=== PATIENT | female | born 2000 | race Caucasian/White ===

== ENCOUNTER 2019-05-12 14:38 | Emergency (ER) | payer OTHER ==
[~2019-05-12] VITALS: Ht 154.9 cm; Wt 68.7 kg
[2019-05-12 14:57] VITALS: BP 123/70
--- NOTE | 2019-05-12 15:37 | NUR ---
EMT AT BEDSIDE FOR EKG
--- NOTE | 2019-05-12 15:42 | NUR ---
PAIN WAS UNDER THE RIGHT BREAST, WITHOUT RADIATION. DENIES LEFT SIDED CP
--- NOTE | 2019-05-12 15:42 | NUR ---
18/F C/O CHEST PAIN 30 MINS AGO, LASTING ~15MINS EPISODE. DENIES CHEST PAIN NOW. DENIES N/V AT THE TIME. STATES DIAPHORESIS BUT PT STATES SHE WAS NERVOUS AT THE TIME. NEVER HAD CP BEFORE. PAIN DESCRIBED CHEST TIGHTNESS "LIKE I COULDN'T BREATHE", 11/16. DENIES SYNCOPE. PT WAS WALKING AROUND AT THE MALL DURING ONSET OF CP. +NASAL CONGESTION +COUGH PMH: DENIES --FAMILY HX OF CARDIAC PROBLEMS: SISTER, MOTHER, MATERNAL GRANDFATHER HAS DILATED CARDIOMYOPATHY MEDS: DENIES NKA
--- NOTE | 2019-05-12 16:34 | NUR ---
Dr. Felix is evaluating the patient at bedside.
--- NOTE | 2019-05-12 16:35 | NUR ---
PT IS RESTING IN BED WITH VSS. PT IS ON MONITOR AND DENIES HAVING ANY CP AT THIS TIME.
[2019-05-12 16:54] VITALS: BP 120/61
--- NOTE | 2019-05-12 16:54 | NUR ---
Patient discharged with v/s stable. Written and verbal after care instructions given and explained. Patient alert, oriented and verbalized understanding of instructions. Ambulatory with steady gait. All questions addressed prior to discharge. ID band removed. Patient advised to follow up with PMD. Rx of Motrin and Prednisone given. Patient educated on indication of medication including possible reaction and side effects. Opportunity to ask questions provided and answered.
== END 2019-05-12 16:54 | disposition home or self-care (01) ==
LOC: MED 14:38
DX: R07.89 Other chest pain (principal); R05 Cough; R06.02 Shortness of breath; Z98.890 Other specified postprocedural states
CPT/HCPCS: 93005; 99283